=== PATIENT | male | born 1980 | race African-American/Black ===

== ENCOUNTER 2024-01-29 20:36 | Emergency (ER) | payer MEDICARE, MEDICAID, SELFPAY ==
--- NOTE | ~2024-01-29 | XR_ITS ---
XR ankle LT min 3V DATE: 01/29/2024 20:57 INDICATION: Injury, fall TECHNIQUE: 3 views including crosstable lateral COMPARISON: None FINDINGS: Mild posterior calcaneal enthesopathy. No fracture or dislocation of the ankle is detected. No periosteal reaction or bone destruction. Mild widening of the tibiotalar joint space anterolaterally. Fractures are suggested at the base of the second, third and fourth metatarsal bones. Consider left f oot radiographs for further evaluation. IMPRESSION: Fractures of the bases of the second, third and fourth metatarsal bones Mild widening of the anterolateral tibiotalar joint space Reviewed, dictated and finalized at location J. IMPRESSION: Fractures of the bases of the second, third and fourth metatarsal b ones Mild widening of the anterolateral tibiotalar joint space
[2024-01-29 20:40] VITALS: BP 139/92; PULSE 101; RESP 20; TEMP 36.3; O2SAT 97
--- NOTE | 2024-01-29 21:51 | PC.NURSE ---
pt has walker at home to use
--- NOTE | 2024-01-29 22:38 | ED.LOWEXIN ---
HPI - Extremity Injury (Lower) General Chief Complaint: Extremity Injury, Lower Stated Complaint: Fall, left ankle pain Time Seen by Provider: 01/29/24 21:09 Source: patient and family Mode of arrival: wheelchair Limitations: no limitations History of Present Illness HPI Narrative: This is a 43-year-old male that presents to the emergency department after a fall today with left foot pain. Reports he twisted the foot walking outside. Landed on grass. He did not hit his head or lose consciousness. He is unable to ambulate due to pain. Denies decreased range of motion or numbness. Related Data Allergies Allergy/AdvReac Type Severity Reaction Status Date / Time No Known Allergies Allergy Verified 01/29/24 20:43 Review of Systems Review of Systems: CONSTITUTIONAL: Denies fever MUSCULOSKELETAL: Reports joint pain, and myalgia. NEUROLOGIC: Denies numbness, or weakness. All systems reviewed & are unremarkable except as noted in HPI and below PMFSH Past Medical History Medical History (Updated 01/29/24 @ 22:45 by Belkys Mccollum PA-C) No active medical problems Social History Social History (Updated 01/29/24 @ 22:45 by Belkys Mccollum PA-C) Smoking status: Never smoker Exam Narrative: GENERAL: Well-appearing, well-nourished, and in no acute distress. HEAD: Normocephalic, atraumatic. EYES: EOMI. EXTREMITIES: Normal range of motion. No obvious deformity. Normal DP pulse. Normal sensation SKIN: Warm, dry, no rash. NEURO: No focal deficits. Alert and oriented x3. PSYCH: Normal mood and affect Course Course Emergency Course: Patient and family updated on workup and agree with plan of care Vital Signs Vital signs: Vital Signs Temperature 97.4 F L 01/29/24 20:40 Pulse Rate 101 H 01/29/24 20:40 Respiratory Rate 20 01/29/24 20:40 Blood Pressure 139/92 H 01/29/24 20:40 Pulse Oximetry 97 01/29/24 20:40 Oxygen Delivery Room Air 01/29/24 20:40 Temperature 97.4 F L 01/29/24 20:40 Pulse Rate 101 H 01/29/24 20:40 Respiratory Rate 20 01/29/24 20:40 Blood Pressure 139/92 H 01/29/24 20:40 Pulse Oximetry 97 01/29/24 20:40 Oxygen Delivery Room Air 01/29/24 20:40 Procedures Orthopedic Splinting/Casting Injury #1: Splinting/Casting Date: 01/29/24 Splinting/Casting Time: 22:47 Side: left Lower Extremity Injury Location: foot Lower Extremity Immobilizer: posterior splint Splint: customized in ED OCL: short leg Pre-Procedure Neuro Vascular Exam: normal Post-Procedure Neuro Vascular Exam: normal MDM - Extremity Injury (Lower) MDM Narrative Medical decision making narrative: Patient presents to the emergency department after left foot injury. He is neurovascularly intact. X-ray shows fractures of the bases of the 2nd 3rd and 4th metatarsals. Patient placed in a short-leg posterior splint. Will be given follow-up with ortho as well as Podiatry. Given warnings to return to the ER Differential Diagnosis Differential diagnosis: Likely ankle sprain and strain, ankle fracture and other (Foot fracture) Imaging Data Radiologist's impression: ITS Impressions Ankle X-Ray 01/29/24 21:16 IMPRESSION: Fractures of the bases of the second, third and fourth metatarsal bones Mild widening of the anterolateral tibiotalar joint space Critical Care Time Critical Care Time Critical Care Time: No Discharge Plan Discharge Clinical Impression: Metatarsal fracture Qualifiers: Encounter type: initial encounter Metatarsal bone: second Fracture type: closed Fracture alignment: nondisplaced Laterality: left Qualified Code(s): S92.325A - Nondisplaced fracture of second metatarsal bone, left foot, initial encounter for closed fracture Patient Disposition: Home, Self-Care Condition: Stable Instructions: Foot Fracture in Adults (ED) Additional Instructions: Return to the ER if you experience f
[2024-01-29 23:07] VITALS: BP 113/76; PULSE 86; RESP 16; O2SAT 98
== END 2024-01-29 23:08 | disposition home or self-care (01) ==
PROVIDERS: Emergency Provider Physician Assistant
DX: S92.325A Nondisplaced fracture of second metatarsal bone, left foot, initial encounter for closed fracture (principal); S92.332A Displaced fracture of third metatarsal bone, left foot, initial encounter for closed fracture; S92.342A Displaced fracture of fourth metatarsal bone, left foot, initial encounter for closed fracture; W19.XXXA Unspecified fall, initial encounter
CPT/HCPCS: 29515; 73610; 99284